=== PATIENT | female | born 1985 | race Caucasian/White ===

== ENCOUNTER 2019-12-17 06:10 | Day surgery (SDC) | payer MEDICAID, SELFPAY ==
--- NOTE | 2019-12-08 22:10 | PCM.HP.BLA ---
History and Physical Date of Admission: 12/09/19 HISTORY OF PRESENT ILLNESS 34 year old woman presents with a recurrent lesion left lateral forehead that had increased in size over the last several months that was recently punch biopsied in May,. She was told the Pathology showed no carcinoma. The wound was not closed and was allowed to heal secondarily. Since then, there has been a recurrence of that lesion with some indentation contour deformity. She denies fever. She denies trauma. She denies recent infection. She presents at this time for further evaluation and treatment. PAST MEDICAL HISTORY No pertinent past medical history PAST SURGICAL HISTORY None ALLERGIES No Known Allergies MEDICATIONS NK FAMILY HISTORY Other - Diabetes, Hypertension SOCIAL HISTORY Smoking Status: Never smoker alcohol intake: current substance use type: does not use REVIEW OF SYSTEMS General - Denies fever, fatigue, and weight loss. Eyes - Denies cataracts and glaucoma. ENT - Denies nasal congestion and sore throat. Endocrine - Denies excessive thirst and urination. Skin - Denies skin cancer. Enlarging recurrent lesion left lateral forehead. Musculoskeletal - Denies joint pain, joint stiffness, weakness of muscles and joints, back pain, and arthritis. Neuro - Denies headaches. Cardiovascular - Denies chest pain, fatigue, and shortness of breath with exertion. Psych - Denies anxiety and depression. Respiratory - Denies chronic cough and shortness of breath. Gastrointestinal - Denies nausea, vomiting, diarrhea, and constipation. Hematologic - Denies abnormal bruising and bleeding. Genitourinary - Denies hematuria and urinary frequency. PHYSICAL EXAMINATION General - Alert and Oriented. HEENT - PERRL. EOMI. Throat is clear. On the left lateral forehead is a recurrent lesion with an indentation contour deformity. Measures 5 mm. No evidence of infection. Has underlying firmness. The lesion is mobile. No ulceration. Lesion is nontender. Located at level of mid eyebrow. Her eyebrows are symmetrical at rest and during animation. Neck - Supple and nontender. No cervical adenopathy. No suspicious lesions noted. Lungs - Clear to auscultation. Heart - Regular rate and rhythm. Abdomen - Soft and nondistended. Extremities - FROM. No axillary adenopathy. Radial pulses are palpable. No suspicious lesions noted. Neuro - CN II-XII grossly intact. Psych - Normal mood and affect. ASSESSMENT 1. 5 mm recurrent lesion left lateral forehead with indentation contour deformity. 2. Late effect of open wound left lateral forehead. PLAN Recommend excision of this recurrent lesion left lateral forehead with indentation contour deformity and send it to Pathology for analysis to rule out carcinoma. If carcinoma is present then further excision will be done with skin flap reconstruction. If no carcinoma is present, should be able to close the wound primarily with a horizontal layered closure without causing upward distortion of the left eyebrow. If there appears to be some upward distortion of the left eyebrow, would proceed with a horizontal rectangular advancement skin flap reconstruction. Discussed the extent of the scarring with the patient. She voiced understanding and wishes to proceed. Surgery can be done under local anesthesia and IV sedation on an outpatient basis. Patient was informed of the risks and complications of the procedure including alternatives to surgery. These were discussed with the patient personally. Patient voices understanding and wishes to proceed. Some of the risks and complications were included in a form from the [place] [employer]. We discussed the current risks associated with COVID-19. While it is understood that there is a community spread of COVID-19, the risk of chanda COVID-19 while at [facility] ([facility]) is very low; however, the risk cannot be completely mitigated because of the community spread of the disease. We discussed in detail the risk of exposure to and/or potential harm posed by the COVID-19 virus with having a surgery/procedure at this time versus the risk of delaying the surgery/procedure. It is not possible to know either the risk of delaying the surgery or procedure or chance of getting an infection with perfect accuracy, but a joint decision was made to proceed at this time with the scheduled surgery/procedure as indicated on the consent form. Patient was notified that we will need to comply with any screening or testing [facility] wishes to perform or that surgery may be delayed for any positive results. At the present time there is no testing for the surgeons. The hospital is working on a policy for that to have the surgeon and surgical staff tested. So she has the option to wait until the surgeon and surgical staff are tested or she can proceed with the surgery at this time before the surgeon and surgical staff are tested. As long as the lesion in question doesn't dramatically increase in size, the surgery can be temporarily delayed until surgeon and surgical staff testing are done. She thought about the risks and wishes to proceed with the surgery at this time. Procedure Criteria Procedure Type: Elective COVID Risk Discussion: The surgeon/proceduralist and patient have discussed in detail the risk of exposure to and/or potential harm posed by the COVID-19 virus with having a surgery/procedure at this time versus the risk of delaying the surgery/procedure. It is not possible to know either the risk of delaying the surgery or procedure or chance of getting an infection with perfect accuracy, but a joint decision was made between the patient and the surgeon/proceduralist to proceed at this time with the scheduled surgery/procedure as indicated on the consent form.
[2019-12-09 12:35] VITALS: BP 118/77; PULSE 88; RESP 16; TEMP 37.2; O2SAT 99; BMI 27.1
[2019-12-09 12:44] LABS: Internal QC Validated? YES +Cl - CLEAR BKGD; Pregnancy, Urine Negative Negative
[2019-12-09] MEDS: Lactated Ringers 1,000 ML 100 ML IV ×2 (13:04→15:20)
--- NOTE | 2019-12-09 20:16 | PCM.PN.BLA ---
Progress Note Due to a surgical emergency with another patient, there would be a delay with starting this patient's surgery. She did not want to wait and her elective surgery was cancelled. It has been rescheduled for 12/17/19.
--- NOTE | 2019-12-16 17:25 | HP.PCM_ITS ---
History and Physical Date of Admission: 12/17/19 History and Physical Date of Admission: 12/09/19 HISTORY OF PRESENT ILLNESS 34 year old woman presents with a recurrent lesion left lateral forehead that had increased in size over the last several months that was recently punch bio psied in May,. She was told the Pathology showed no carcinoma. The wound was not closed and was allowed to heal secondarily. Since then, there has been a recurrence of that lesion with some indentation contour deformity. She denies fever. She denies trauma. She denies recent infection. She presents at this time for further evaluation and treatment. PAST MEDICAL HISTORY No pertinent past medical history PAST SURGICAL HISTORY None ALLERGIES No Known Allergies MEDICATIONS NK FAMILY HISTORY Other - Diabetes, Hypertension SOCIAL HISTORY Smoking Status: Never smoker alcohol intake: current substance use type: does not use REVIEW OF SYSTEMS General - Denies fever, fatigue, and weight loss. Eyes - Denies cataracts and glaucoma. ENT - Denies nasal congestion and sore throat. Endocrine - Denies excessive thirst and urination. Skin - Denies skin cancer. Enlarging recurrent lesion left lateral forehead. Musculoskeletal - Denies joint pain, joint stiffness, weakness of muscles and joints, back pain, and arthritis. Neuro - Denies headaches. Cardiovascular - Denies chest pain, fatigue, and shortness of breath with exertion. Psych - Denies anxiety and depression. Respiratory - Denies chronic cough and shortness of breath. Gastrointestinal - Denies nausea, vomiting, diarrhea, and constipation. Hematologic - Denies abnormal bruising and bleeding. Genitourinary - Denies hematuria and urinary frequency. PHYSICAL EXAMINATION General - Alert and Oriented. HEENT - PERRL. EOMI. Throat is clear. On the left lateral forehead is a recurrent lesion with an indentation contour deformity. Measures 5 mm. No evidence of infection. Has underlying firmness. The lesion is mobile. No ulceration. Lesion is nontender. Located at level of mid eyebrow. Her eyebrows are symmetrical at rest and during animation. Neck - Supple and nontender. No cervical adenopathy. No suspicious lesions noted. Lungs - Clear to auscultation. Heart - Regular rate and rhythm. Abdomen - Soft and nondistended. Extremities - FROM. No axillary adenopathy. Radial pulses are palpable. No suspicious lesions noted. Neuro - CN II-XII grossly intact. Psych - Normal mood and affect. ASSESSMENT 1. 5 mm recurrent lesion left lateral forehead with indentation contour deformity. 2. Late effect of open wound left lateral forehead. PLAN Recommend excision of this recurrent lesion left lateral forehead with indentation contour deformity and send it to Pathology for analysis to rule out carcinoma. If carcinoma is present then further excision will be done with skin flap reconstruction. If no carcinoma is present, should be able to close the wound primarily with a horizontal layered closure without causing upward distortion of the left eyebrow. If there appears to be some upward distortion of the left eyebrow, would proceed with a horizontal rectangular advancement skin flap reconstruction. Discussed the extent of the scarring with the patient. She voiced understanding and wishes to proceed. Surgery can be done under local anesthesia and IV sedation on an outpatient basis. Patient was informed of the risks and complications of the procedure including alternatives to surgery. These were discussed with the patient personally. Patient voices understanding and wishes to proceed. Some of the risks and complications were included in a form from the [place] [employer]. We discussed the current risks associated with COVID-19. While it is understood that there is a community spread of COVID-19, the risk of chanda COVID-19 while at [facility] ([facility]) is very low; however, the risk cannot be completely mitigated because of the community spread of the disease. We discussed in detail the risk of exposure to and/or potential harm posed by the COVID-19 virus with having a surgery/procedure at this time versus the risk of delaying the surgery/procedure. It is not possible to know either the risk of delaying the surgery or procedure or chance of getting an infection with perfect accuracy, but a joint decision was made to proceed at this time with the scheduled surgery/procedure as indicated on the consent form. Patient was notified that we will need to comply with any screening or testing [facility] wishes to perform or that surgery may be delayed for any positive results. Procedure Criteria Procedure Type: Elective COVID Risk Discussion: The surgeon/proceduralist and patient have discussed in detail the risk of exposure to and/or potential harm posed by the COVID-19 virus with having a surgery/procedure at this time versus the risk of delaying the surgery/procedure. It is not possible to know either the risk of delaying the surgery or procedure or chance of getting an infection with perfect accuracy, but a joint decision was made between the patient and the surgeon/proceduralist to proceed at this time with the scheduled surgery/procedure as indicated on the consent form.
[2019-12-17] VITALS (7 sets, daily range): BP systolic 104–131; BP diastolic 68–85; PULSE 78–84; RESP 16; TEMP 36.4–37; O2SAT 99–100; BMI 27.1
--- NOTE | 2019-12-17 | LES_PTH ---
PATIENT: JANICE SPARKS LOC: [facility] [place] U#:[id number] AGE/SX: 34/F ROOM: RE12/17/[address]: Dr. Joesph Schilling MD : [id number] BED: DIS: 12/17/2019 SPEC #: [id number] RECD: 12/17/19 11:57 STATUS: ALEXEY REMariely #: [id number] LARRY: 12/17/19 00:[address]: Joesph Schilling DEPT: SURGICAL PATHOLOGY RECD BY: Christiano Butler ENTERED: 12/17/19 11:58 SP TYPE: Lesion OTHR DR: Dr. Reji Field MD Tissues: Skin of head, NOS Procedures: Surgery Specimen Level IV HEADER OPERATION: Excision lesion lateral forehead PRE-OP DIAGNOSIS: 5 mm recurrent lesion forehead with indentation and contour deformity TISSUE SUBMITTED: 5 mm lesion left lateral forehead, suture at 12 o'clock MICROSCOPIC DIAGNOSIS Lesion of left lateral forehead, excision: Solar elastosis and minimal actinic change. AM:ronnell 12/18/19 MICROSCOPIC DESCRIPTION Slides are reviewed. GROSS DESCRIPTION Received in fixative is one container labeled with the patient's name and designated 5 mm lesion left lateral forehead, suture at 12 o'clock. The specimen consists of a thin strip of friedman-white skin ellipse measuring 0.6 x 0.2 x 0.3 cm. The specimen is inked as follows: 12 o'clock - black, 6 o'clock - blue. The entire specimen is submitted in one cassette. It will be bisected at the time of embedding. / SJ:ronnell 12/17/19 TC:5 CPT: 07840
[2019-12-17] MEDS: Lactated Ringers 1,000 ML 100 ML IV (06:35)
[2019-12-17 07:31] LABS: Internal QC Validated? YES +Cl - CLEAR BKGD
[2019-12-17 07:33] LABS: Pregnancy, Urine Negative Negative
[2019-12-17] MEDS: Mupirocin Ointment 22gm Tube 1 APPLIC (08:00)
--- NOTE | 2019-12-17 08:06 | PCM.OPRPT ---
Report of Operation Date of Procedure: 12/17/19 Pre-Operative Diagnosis: 1. 5 mm recurrent lesion left lateral forehead with indentation contour deformity. 2. Late effect of open wound left lateral forehead. Post-Operative Diagnosis: Same. Surgery/Procedure Performed:: Excision 5 mm recurrent lesion left lateral forehead with indentation contour deformity with 1.5 cm layered closure. Description of Surgical Findings:: 34 year old woman presents with a recurrent lesion left lateral forehead that had increased in size over the last several months that was recently punch biopsied in May,. She was told the Pathology showed no carcinoma. The wound was not closed and was allowed to heal secondarily. Since then, there has been a recurrence of that lesion with some indentation contour deformity. She denies fever. She denies trauma. She denies recent infection. Patient was informed of the risks and complications of the procedure including alternatives to surgery. These were discussed with the patient personally. Patient voices understanding and wishes to proceed. Some of the risks and complications were included in a form from the [place] [employer]. library sales consultant: None Type of Anesthesia:: Local MAC - xylocaine with epinephrine and IV sedation. Specimen's removed: Recurrent lesion left lateral forehead with indentation contour deformity to Pathology. Drains: None. Estimated Blood Loss (mL): 2 ml. Description of Procedure: Patient was taken to OR in supine position and was given IV sedation. The left forehead was prepped and draped in the usual fashion. SCD's were placed for DVT prophylaxis. Perioperative antibiotics were given intravenously. The recurrent lesion left lateral forehead with indentation contour deformity was infiltrated with xylocaine and epinephrine. After waiting 5 minutes for the anesthetic to take effect, the lesion was excised with a horizontal elliptical excision down into the subcutaneous tissue. It was excised with a 1 mm margin in all directions making it a 7 mm excision with a 1.5 cm layered closure. A suture was marked at the 12 oclock position for pathology orientation. The lesion was sent to Pathology for analysis to rule out carcinoma. Hemostasis was obtained with electrocautery. The wound was closed in a layered fashion without tension and distortion of the eyebrow. The deep dermis and subcutaneous tissue was approximated with 5-0 Monocryl interrupted sutures. The skin was approximated with 6-0 Prolene simple interrupted sutures. Steri-strips were applied followed by antibiotic ointment. Patient tolerated the procedure well and was sent to PACU in satisfactory condition. Patient will be sent home on antibiotics and pain medication. She will keep her head elevated during the initial postoperative period. Patient will followup in a week for a wound check and for discussion of the pathology report and for removal of the sutures. Grafts/Implants Used: None. - Complications None. - Admit VTE Documentation VTE Present on Admission: No VTE Mechan Device Prophylaxis: SCD's VTE Pharm Prophylaxis ordered?: No Surgery Charges CPT - 29565 ICD-10 - D49.2, S01.80xS 57063 D49.2, S01.80xS
--- NOTE | 2019-12-17 08:18 | PCM.DC ---
You will use the following diet at home:: No restrictions Discharge Activity: May not drive while taking narcotic pain medications., May Shower - in two days., - - keep head elevate. no heavy lifting. May shower in (days): 2 May resume sexual activity in: No Restrictions Ice area for (Minutes): 5 - as needed for facial swelling. Weight Bearing Status: Weight bearing as tolerated Lifting Restrictions: 20 lbs. Keep extremity elevated above heart level: - - elevate head. Call your doctor if your incision/area has: Continuous Slow Oozing, Sudden Increased Bleeding, Increased Pain/ Swelling, Increased Redness, Foul Smelling Discharge, Swelling at the incision site Call your doctor if you observe: Fever of 101 or Higher, Coldness, Increased Pain, Shortness of breath, Chest pain, Calf discomfort, Uncontrolled pain Suture Line Care: - - apply antibiotic ointment to suture ilne daily. Cleanse incision/area with: - - may get incision wet in the shower in two days. Allergies/Adverse Reactions: Allergies No Known Allergies Allergy (Unverified 12/17/19 06:30) Medications to take at Discharge Clindamycin HCl [Cleocin] 300 mg PO TID #12 cap 12/17/19 Oxycodone HCl/Acetaminophen [Percocet 5/325] 1 tablet PO Q6H PRN PRN 4 Days #15 tablet 12/17/19 The following prescriptions were given: Clindamycin HCl [Cleocin] 300 mg PO TID #12 cap Transmission Status: Pending to [facility] Oxycodone HCl/Acetaminophen [Percocet 5/325] 1 tablet PO Q6H PRN PRN 4 Days #15 tablet PRN Reason: Pain Score 4-5/10 Transmission Status: Sent to [facility] Primary Care Physician: Reji Field MD [Primary Care Provider] - Test Results: Test results from this visit will be discussed in further detail at your follow-up appointment, if applicable. Please Follow Up With: Joesph Schilling MD When: one week. call [phone] for appt. Proposed Discharge Date: 12/17/19
== END 2019-12-17 09:10 | disposition home or self-care (01) ==
LOC: SDC 06:11 → AC 06:11
PROVIDERS: Anesthesiology; PCP Family Medicine; Referring Provider Surgery; Visit Provider Surgery
PROC: (CPT 11441; principal; 2019-12-17 07:20)
DX: L98.9 Disorder of the skin and subcutaneous tissue, unspecified (principal); Z11.59 Encounter for screening for other viral diseases
CPT/HCPCS: 00300; 11441; 12051; 81025; 87635; 88305; G2023; J7120; J2405; U0003

== ENCOUNTER → 2024-07-26 | Outpatient (CLI) | payer SELFPAY, OTHER ==
--- NOTE | 2024-07-26 11:10 | RAD_ITS ---
PROCEDURE: L/S SPINE MIN 4 VIEWS REASON FOR EXAM: Low back pain, unspecified TECHNIQUE: Four view(s) of lumbar spine COMPARISON: None. FINDINGS: The height and alignment of the vertebral bodies is normal. The bones are well mineralized. Mild degenerative disc disease is present at L2-3 and L3-4 with mild loss of disc height and anterior endplate spurring. No significant degenerative facet disease is identified. The visualized soft tissues of the abdomen are unremarkable. RAD/L/S Spine Min 4 Views IMPRESSION: 1. No acute abnormality. 2. Mild degenerative disc disease at L2-3 and L3-4. Reading Location: [facility]
--- NOTE | 2024-07-26 11:10 | RAD_ITS ---
EXAM: XR Cervical Spine Flexion/Extension Only, 2 or 3 Views CLINICAL INDICATION: TECHNIQUE: Lateral flexion/extension views of the cervical spine. COMPARISON: No relevant prior studies available. FINDINGS: VERTEBRAE: Unremarkable. No acute fracture. Normal alignment. No instability. DISC SPACES: No acute findings. No significant narrowing. SOFT TISSUES: Unremarkable. RAD/Cerv Spine 4 or 5 Views IMPRESSION: No acute fracture. Reading Location: [facility]
== END | disposition home or self-care (01) ==
PROVIDERS: PCP Family Medicine; Referring Provider Chiropractor Orthopedic; Visit Provider Chiropractor Orthopedic
DX: M99.01 Segmental and somatic dysfunction of cervical region (principal); M99.03 Segmental and somatic dysfunction of lumbar region; M54.50 Low back pain, unspecified; M54.2 Cervicalgia
CPT/HCPCS: 72050; 72110